=== PATIENT | female | born 1975 | race Caucasian/White ===

== ENCOUNTER → 2022-09-19 08:53 | Outpatient (CLI) | payer BC, SELFPAY ==
--- NOTE | 2022-09-19 08:53 | US_ITS ---
FINAL REPORT CLINICAL HISTORY: dub, irregular periods FINDINGS: Transvaginal sonographic images of the pelvis were obtained. The uterus measures 7.2 x 5.2 x 4.3 cm. The endometrium measures 5 mm, which is within normal limits. A fibroid is noted within the uterus which measures up to 1.9 cm. The right ovary measures 1.3 cm in length and left ovary measures 1.8 cm in length. Normal blood flow seen to the right ovary. Doppler flow was not able to be obtained of the left ovary of uncertain significance but favor artifactual. There is no evidence of free fluid. IMPRESSION: Uterine fibroid up to 1.9 cm. Doppler flow was not able to be obtained of the left ovary of uncertain significance but favor artifactual. Normal blood flow demonstrated in the right ovary. Reviewed, Interpreted and Dictated by Pradeep Goss III, MD Transcribed by Scarlet Hernandez Authenticated and [facility]
[2022-09-19 10:14] LABS: Basophils # 0.1 K/mm3 (0-0.2); Basophils % 1.2 % (0.1-2.0); Eosinophils # 0.1 K/mm3 (0.0-0.4); Eosinophils % 1.6 % (0.1-12.0); Hematocrit 40.5 % (37.0-47.0); Hemoglobin 12.9 g/dL (12.2-16.2); Lymphocytes # 1.7 K/mm3 (0.7-4.5); Lymphocytes % 34.1 % (10-50); Mean Corpuscular HGB Conc 31.9 g/dL (31.8-35.4); Mean Platelet Volume 9.5 fl (7.4-10.4); Monocytes # 0.2 K/mm3 (0.1-1.0); Monocytes % 3.8 % (1.7-9.3); Neutrophils % 59.3 % (37.0-80.0); Platelet Count 228 K/mm3 (142-424); Red Blood Count 4.45 M/mm3 (4.20-5.40); Red Cell Distribution Width 13.1 % (11.5-17.5)
[2022-09-20 08:15] LABS: Estradiol 12.8 pg/mL (.); FSH 73.7 mIU/mL (.)
== END ==
PROVIDERS: PCP Family Medicine; Visit Provider Obstetrics & Gynecology
DX: N93.8 Other specified abnormal uterine and vaginal bleeding (principal); N95.0 Postmenopausal bleeding
CPT/HCPCS: 36415; 76830; 82670; 83001; 85025

== ENCOUNTER → 2022-11-23 11:25 | Outpatient (CLI) | payer BC, SELFPAY ==
[2022-11-23 12:17] LABS: Basophils # 0.1 K/mm3 (0-0.2); Basophils % 0.9 % (0.1-2.0); Eosinophils # 0.1 K/mm3 (0.0-0.4); Eosinophils % 1.7 % (0.1-12.0); Hematocrit 37.9 % (37.0-47.0); Hemoglobin 12.2 g/dL (12.2-16.2); Lymphocytes # 1.9 K/mm3 (0.7-4.5); Lymphocytes % 33.4 % (10-50); Mean Corpuscular HGB Conc 32.3 g/dL (31.8-35.4); Mean Corpuscular Hemoglobin 29.1 pg (27.0-31.2); Mean Corpuscular Volume 90.1 fl (81-99); Mean Platelet Volume 9.3 fl (7.4-10.4); Monocytes # 0.3 K/mm3 (0.1-1.0); Monocytes % 4.3 % (1.7-9.3); Neutrophils # 3.5 K/mm3 (1.8-7.8); Neutrophils % 59.8 % (37.0-80.0); Platelet Count 267 K/mm3 (142-424); Red Cell Distribution Width 13.4 % (11.5-17.5); White Blood Count 5.8 K/mm3 (4.8-10.8)
[2022-11-23 12:40] LABS: Alanine Aminotransferase 18 U/L (12-78); Albumin Level 4.1 g/dl (3.5-5.0); Albumin/Globulin Ratio 1.6 (1.1-1.8); Alkaline Phosphatase 156 U/L (38-126); Anion Gap 10.1 mEq/L (5-15); Aspartate Amino Transferase 24 U/L (14-36); Bilirubin,Total 0.4 mg/dl (0.2-1.3); Blood Urea Nitrogen 12 mg/dl (7-17); Calcium 8.8 mg/dl (8.4-10.2); Carbon Dioxide 29 mmol/L (22.0-30.0); Chloride 105 mmol/L (98-107); Estimated Glomerular Filt Rate 67 ml/min (>60); GFR (African American) 81 ML/MIN (>60); Globulin 2.5 g/dL (1.3-3.2); Glucose 92 mg/dl (74-100); Potassium 4.1 mmoL/L (3.5-5.1); Sodium 140 mmol/L (136-145); Total Protein,Serum 6.6 g/dl (6.3-8.2)
[2022-11-23 13:02] LABS: HCG,Quantitative < 2 mIU/ml (0-5.42)
== END ==
PROVIDERS: PCP Family Medicine; Visit Provider Obstetrics & Gynecology
DX: Z01.812 Encounter for preprocedural laboratory examination (principal); R93.89 Abnormal findings on diagnostic imaging of other specified body structures; N95.0 Postmenopausal bleeding
CPT/HCPCS: 36415; 80053; 84702; 85025

== ENCOUNTER 2022-11-28 06:01 | Day surgery (SDC) | payer BC, SELFPAY ==
[2022-11-27 11:55] VITALS: BMI 40.7
[2022-11-28] VITALS (12 sets, daily range): BP systolic 104–159; BP diastolic 70–99; PULSE 59–75; RESP 12–19; TEMP 36.2–43; O2SAT 95–99
--- NOTE | 2022-11-28 08:58 | P.PNANES_ITS ---
[facility] Anesthesia Record Part I Anesthesia Record I Intake, IV Amount: 1,000 Estimated blood loss (mL): 5 Urine output (mL): 400 Blood Pressure: 104/70 SaO2: 96 Pulse Rate: 64 Respiratory Rate: 12 Temperature: 97.2 F Patient is:: Awake and Stable Stable to PACU at:: 08:55
--- NOTE | 2022-11-28 09:55 | EXP.OP.NOTE ---
Date of procedure: 11/28/22 Pre-op Diagnosis:: 1. Post-menopausal bleeding 2. Thickened endometrium 3. Obesity, BMI 40 Post-op Diagnosis:: Same Procedure performed:: 1. D&C Hysteroscopy with Myosure 2. Novasure Endometrial Ablation Surgeon:: Candida Cruz MD SIZING MACHINE AND DRIER OPERATOR:: Golden Carson Anesthesia: GETA Estimated blood loss (mL): 5 Operative findings:: Normal appearing uterine cavity Thickened endometrium noted on ultrasound not visualized on hysteroscopic exam No visible polyps or fibroids Operative note:: The patient was taken to the operating room and general anesthesia was administered. She was prepped/draped in lithotomy position. The anterior lip of the cervix was grasped with a single tooth tenaculum and the cervix was dilated with Willett dilators of serially increasing size until the external os was able to accomodate the Myosure hysteroscope. The hysteroscope was advanced through the cervix and into the uterine cavity, which was distended with LR. Once the uterus was sufficiently distended, the cavity was evaluated and appeared normal. The thickened endometrium documented on preoperative ultrasound was not appreciated on hysteroscopic exam. No polyps or fibroids were visualized. Because this was a second incident of post-menopausal bleeding in a woman with risk factors for endometrial hyperplasia, the Myosure was chosen for thorough endometrial tissue sampling, over the alternative of blind sharp curettage. The endometrial tissue was biopsied from all areas of the uterine cavity, without complication or significant fluid deficit. After the conclusion of this procedure, the Myosure and hysteroscope were removed from the uterus. The uterine cavity sounded to a length of 4.5cm. The Novasure was inserted through the cervix and expanded to fit the width of the uterus, with a width of 2.9cm. After a successful cavity assessment, the device was deployed and the endometrial ablation was completed in 84seconds. Once the device had turned off, the Novasure was removed from the uterus and the hysteroscope was reinserted into the uterine cavity. The cavity appeared diffusely cauterized. The hysteroscope was removed from the uterus and all instruments removed from the vagina. The tenaculum site was hemostatic. All sponge/lap/needle/instrument counts correct x2. Total EBL: 5 cc. The patient was taken out of lithotomy position, extubated and taken to the PACU in stable condition. Condition: stable Disposition: PACU Specimens:: Endometrial Complications:: None
--- NOTE | 2022-11-28 11:04 | EXP.ANES.II ---
[facility] Anesthesia Record Part II Anesthesia Record Part II Discharge Time: 09:35 Destination: Surgical Day Care (OP Surgery) PACU nurse assessment reviewed?: Yes Patient Condition:: Good Anesthesia Complications:: None Swallowing reflex intact?: Yes Cyanosis?: No Blood Pressure: 146/83 Pulse Rate: 64 Temperature: 97.3 F Mental Status: Alert & Oriented Pain level:: 4 Nausea and/or vomitting:: None Intake, IV Amount: 0
== END 2022-11-28 10:17 | disposition home or self-care (01) ==
PROVIDERS: PCP Family Medicine; Visit Provider Obstetrics & Gynecology
PROC: (CPT 58563; principal; 2022-11-28 07:30)
DX: N95.0 Postmenopausal bleeding (principal); R93.89 Abnormal findings on diagnostic imaging of other specified body structures; E66.9 Obesity, unspecified; Z68.41 Body mass index [BMI] 40.0-44.9, adult; Z79.899 Other long term (current) drug therapy; E89.0 Postprocedural hypothyroidism
CPT/HCPCS: 58563; 88305; 96374; J2405